=== PATIENT | male | born 1970 | race Caucasian/White ===

== ENCOUNTER 2021-10-14 00:12 | Emergency (ER) | payer OTHER ==
[2021-10-14] VITALS (31 sets, daily range): BP systolic 113–147; BP diastolic 67–97
[~2021-10-14] VITALS: Ht 180.3 cm; Wt 88.0 kg
[~2021-10-14 00:12] MED LIST: BACTRIM DS1 TAB PO; BACTROBAN2 % EX; KEFLEX500 M1 PO; KEFLEX500 MG PO; NAPROSYN500 MG PO; NO HOME MEDS; NO MEDS; ULTRAM50 M1 PO
[2021-10-14 00:35] LABS: HEMATOCRIT 38.8 % (39.0-50.0); IMMATURE GRANULOCYTES 0.4 % (0.0-5.0); MEAN CELL VOLUME 93.3 fL CALC (80.0-100.0); MEAN CORPUSCULAR HGB 31.3 pG CALC (26.0-32.0); MEAN CORPUSCULAR HGB CONC 33.5 g/dL CAL (32.0-36.0); NEUT# 6.52 thou/uL (1.82-7.42); RED BLOOD COUNT 4.16 mill/uL (4.70-6.10); RED CELL DISTRI WIDTH 12.7 % (11.5-15.5)
[2021-10-14 00:56] LABS: ALKALINE PHOSPHATASE 60 u/l (38-126); BILIRUBIN, TOTAL 0.5 mg/dL (0.0-1.4); BUN 19 mg/dL (9-20); BUN/CREATININE RATIO 24 (12-20 (CALC)); CARBON DIOXIDE 24 mmol/l (22-30); CHLORIDE 110 mmol/l (95-108); CPK 412 u/l (52-200); CREATININE 0.8 mg/dL (0.7-1.3); ETHYL ALCOHOL 0 mg/dl (0-30); GFR > 60 ML/MIN (>=60 (CALC)); GFR FOR AFR.AMER. > 60 ML/MIN (>=60 (CALC)); SGOT/AST 33 u/l (17-59); SODIUM 140 mmol/l (137-146)
[2021-10-14 01:00] LABS: ALBUMIN 4.1 g/dL (3.2-5.0); ANION GAP 10 (6-22 (CALC)); POTASSIUM 3.7 mmol/l (3.5-5.1)
[2021-10-14 01:04] LABS: MYOGLOBIN 130 ng/mL (0 - 121)
[2021-10-14 06:38] LABS: URINE BILIRUBIN - DIPSTICK NEGATIVE (NEGATIVE); URINE BLOOD DIPSTICK NEGATIVE (NEGATIVE); URINE COLOR YELLOW; URINE GLUCOSE - DIPSTICK NEGATIVE (NEGATIVE); URINE KETONE 15 mg/dL (NEGATIVE); URINE LEUK ESTERASE NEGATIVE (NEGATIVE); URINE PH 5.5 (4.5-8.0); URINE PROTEIN - DIPSTICK NEGATIVE (NEG-TRACE); URINE SPECIFIC GRAVITY >=1.030; URINE UROBILINOGEN - DIPSTICK 0.2 E.U./dL (0.2)
[2021-10-14 06:40] LABS: URINE NITRITE - DIPSTICK NEGATIVE (Negative)
== END 2021-10-14 08:06 | disposition home or self-care (01) ==
LOC: ED 00:12
PROVIDERS: Family Medicine
DX: F15.10 Other stimulant abuse, uncomplicated (principal); F17.200 Nicotine dependence, unspecified, uncomplicated